=== PATIENT | female | born 2000 | race Caucasian/White ===

== ENCOUNTER → 2019-03-10 19:21 | Outpatient (CLI) | payer OTHER, SELFPAY | PROVIDERS: PCP Internal Medicine; Visit Provider Physician Assistant | DX: N39.0 Urinary tract infection, site not specified (principal) | CPT/HCPCS: 87077; 87086; 87147 ==

== ENCOUNTER 2019-09-06 18:43 | Emergency (ER) | payer OTHER, SELFPAY ==
[2019-09-06 18:48] VITALS: BP 135/86; PULSE 98; RESP 22; TEMP 36.5; O2SAT 99; BMI 41.0
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
[2019-09-06] MEDS: KETOROLAC 60 MG/2 ML VIAL 30 MG IM (19:40)
[2019-09-06] MEDS: CYCLOBENZAPRINE 10 MG TABLET PO (19:40)
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
[2019-09-06 20:13] LABS: Bacteria Urine None Seen; RBC Urine None Seen (0-5/HPF)
[2019-09-06 20:26] LABS: Squamous Epithelial Cell Urine 10-30 /HPF (0-5/HPF); WBC Urine 5-10/HPF (0-5/HPF)
[2019-09-06 20:27] LABS: Culture Indicated Urine Cult Not Indicated
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
[2019-09-06] MEDS: CYCLOBENZAPRINE 10 MG PREPACK 1 BOTTLE MISC (21:13)
[2019-09-06] MEDS: KETOROLAC 10MG PREPACK 1 BOTTLE MISC (21:13)
[2019-09-06 21:20] VITALS: BP 125/72; PULSE 61; O2SAT 98
== END 2019-09-06 21:21 | disposition home or self-care (01) ==
PROVIDERS: Emergency Provider Nurse Practitioner Family; PCP Family Medicine
DX: M62.830 Muscle spasm of back (principal); S39.012A Strain of muscle, fascia and tendon of lower back, initial encounter; R06.02 Shortness of breath; V49.40XA Driver injured in collision with unspecified motor vehicles in traffic accident, initial encounter
CPT/HCPCS: 71046; 72100; 81003; 81015; 81025; 96372; 99282; 99283; J1885